=== PATIENT | male | born 1965 | race Caucasian/White ===

== ENCOUNTER 2017-01-15 16:30 | Outpatient (CLI) | payer SELFPAY | END 2017-01-15 16:31 | disposition home or self-care (01) | DX: M47.816 Spondylosis without myelopathy or radiculopathy, lumbar region (principal) ==

== ENCOUNTER 2020-09-11 13:00 | Outpatient (CLI) | payer OTHER ==
--- NOTE | 2020-09-11 13:49 | XRAY Report ---
PROCEDURE: Lumbar Spine 2 View INDICATIONS: TRAUMATIC FALL TECHNIQUE: 2 views of the lumbar spine were acquired. COMPARISON: 01/15/2017, 09/10/2015 FINDINGS: Bones: 5 [id number] vertebrae are present. There is normal bony alignment. No vertebral body compression fractures. No suspicious bony lesions. Mild disc space narrowing is seen at the L5-S1 level. Facet arthropathy is seen, which is most promi nent inferiorly. Soft tissues: Overlying bowel gas pattern is normal. No suspicious soft tissue calcifications. Ath erosclerotic calcification is seen. IMPRESSION: No acute bony abnormality is seen by plain film. If there is focal tenderness (or other strong clinical concern for a fracture that is not seen on thi s plain film study) then please consider a dedicated CT for further evaluation. Stable focal L5-S1 degenerative change. Reviewed by: Jose Dukes MD on 09/11/2020 12:47 PM [facility] Approved by: Jose Dukes MD on 09/11/2020 12:47 PM [facility]ARY Station ID: [id number]
== END 2020-09-11 13:01 | disposition home or self-care (01) ==
LOC: DI 13:00
PROVIDERS: ATTEND Chiropractor
DX: S33.5XXA Sprain of ligaments of lumbar spine, initial encounter (principal); M47.27 Other spondylosis with radiculopathy, lumbosacral region
CPT/HCPCS: 72100